=== PATIENT | female | born 1985 | race Caucasian/White ===

== ENCOUNTER 2024-07-17 08:45 | Outpatient (CLI) | payer OTHER, SELFPAY ==
[2024-07-17 11:27] LABS: Chloride* 101 mmol/L (96-114)
[2024-07-17 11:28] LABS: Albumin* 4.9 g/dL (3.3-5.0); Basophils Absolute Auto 0.03 K/uL (0.00-0.30); Basophils Percent Auto 0.4 % (0.0-3.0); Eosinophils Absolute Auto 0.15 K/uL (0.00-0.50); Eosinophils Percent Auto 2.2 % (0.0-7.0); Hemoglobin* 14.5 gm/dL (12.0-16.0); Lymphocytes Absolute Auto 2.06 K/uL (0.90-2.90); Lymphocytes Percent Auto 30.7 % (20-44); Mean Corpuscular HGB Conc 33 gm/dL (32-36); Mean Corpuscular Hemoglobin 30 pg (26-34); Mean Corpuscular Volume 91 fL (80-100); Monocytes Percent Auto 6.4 % (0.0-11.0); Neutrophils Absolute Auto 4.04 K/uL (1.7-7.0); Neutrophils Percent Auto 60.3 % (42.0-72.0); Platelet Count* 247 K/uL (140-440); Potassium* 4.6 mmol/L (3.6-5.1); RDW Coefficient of Variation % 13.7 % (11.5-15.5); Red Blood Count 4.84 m/uL (4.00-5.20); Sodium* 135 mmol/L (135-149); White Blood Count* 6.71 K/uL (4.50-11.00)
[2024-07-17 11:30] LABS: Blood Urea Nitrogen* 19 mg/dL (5-24); Creatinine* 0.8 mg/dL (0.5-1.5); Estimated Glomerular Filt Rate 96 ml/min; Slide Review Reflex No
[2024-07-17 11:31] LABS: Alanine Aminotransferase* 20 U/L (4-35); Alkaline Phosphatase* 43 U/L (40-150); Anion Gap 8 mEq/L (7-15); Aspartate Amino Transferase* 28 U/L (12-35); Bilirubin Total* 0.7 mg/dL (0.1-1.5); Carbon Dioxide* 26 mmol/L (20-32); Glucose* 98 mg/dL (60-115); Total Protein* 7.6 g/dL (6.0-8.3)
[2024-07-17 12:22] LABS: Gamma Glutamyl Transpeptidase* 17 U/L (8-55)
== END 2024-07-17 08:46 | disposition home or self-care (01) ==
LOC: NPINS 07-21 13:09
PROVIDERS: Visit Provider Nurse Practitioner Psychiatric/Mental Health
DX: F10.20 Alcohol dependence, uncomplicated (principal)
CPT/HCPCS: 80053; 82977; 85025